=== PATIENT | male | born 1990 | race Caucasian/White ===

== ENCOUNTER 2017-06-29 13:27 | Emergency (ER) | payer SELFPAY ==
[~2017-06-29] VITALS: Ht 177.8 cm; Wt 115.7 kg
[~2017-06-29 13:27] MED LIST: ALBUTEROL0.09 MG/A2 INH; FLEXERIL10 MG PO; LOMOTIL 0.025 M1 TA1 PO; NKHM; Nizoral 2%15 GM PO; PREDNICOT20 MG PO; TESSALON PERLE100 M1 PO; TRAMADOL HCL50 MG PO; TYLENOL W/CODEI1 TA2 PO; ULTRAM50 MG PO; ZITHROMAX Z PA250 MG PO; ZOVIRAX800 MG PO
[2017-06-29 14:07] LABS: BASO % 0.4 % (0.0-1.0); EOS % 0.1 % (1.0-4.0); HEMOGLOBIN 13.1 g/dl (14.0-18.0); LYMPH # 1.3 10*3/uL (1.3-4.4); MEAN CELL VOLUME 88.4 fl (80.0-94.0); MEAN CORPUSCULAR HGB 30.5 pg (27.0-31.0); MEAN CORPUSCULAR HGB CONC 34.5 g/dl (33.0-37.0); MEAN PLATELET VOLUME 9.2 fl (9.6-12.3); MONO # 0.7 10*3/uL (0.1-1.0); MONO % 6.7 % (3.0-9.0); NEUT # 7.9 10*3/uL (2.3-7.9); NEUT % 79.1 % (47.0-73.0); PLATELET COUNT AUTOMATED 150 10*3/uL (130-400); RED CELL DISTRI WIDTH 12.1 % (0-14.5)
[2017-06-29 14:25] LABS: ALBUMIN 3.5 gm/dl (3.1-4.5); ALKALINE PHOSPHATASE 92 U/L (45-117); BUN 9 mg/dl (7-24); CHLORIDE 106 mmol/L (98-107); CREATININE 0.92 mg/dL (0.70-1.30); POTASSIUM 3.9 mmol/L (3.5-5.1); SGOT/AST 37 IU/L (3-35); SGPT/ALT 53 U/L (12-78); SODIUM 139 mmol/L (136-145)
[2017-06-29] MEDS ORDERED: CLARITIN10 MG PO (15:02)
[2017-06-29] MEDS ORDERED: FLONASE ALLERG9.9 ML NAS (15:02)
[2017-06-29] MEDS ORDERED: PREDNISONE10 MG PO (15:02)
[2017-06-29] MEDS ORDERED: ROBITUSSIN DM 105 ML PO (15:02)
== END 2017-06-29 15:37 | disposition home or self-care (01) ==
LOC: ED 13:27
PROVIDERS: Nurse Practitioner Family
DX: B34.9 Viral infection, unspecified (principal); R03.0 Elevated blood-pressure reading, without diagnosis of hypertension; J02.9 Acute pharyngitis, unspecified

== ENCOUNTER 2017-07-03 09:25 | Emergency (ER) | payer SELFPAY ==
[~2017-07-03] VITALS: Ht 177.8 cm; Wt 117.9 kg
[~2017-07-03 09:25] MED LIST changes: +CLARITIN10 MG PO; +FLONASE ALLERG9.9 ML NAS; +PREDNISONE10 MG PO; +ROBITUSSIN DM 105 ML PO
[2017-07-03] MEDS ORDERED: VIBRAMYCIN100 MG PO (10:05)
== END 2017-07-03 10:55 | disposition home or self-care (01) ==
LOC: ED 09:25
DX: R50.9 Fever, unspecified (principal); R21 Rash and other nonspecific skin eruption; R53.1 Weakness; M54.2 Cervicalgia

== ENCOUNTER 2018-06-22 13:14 | Emergency (ER) | payer SELFPAY ==
[~2018-06-22] VITALS: Ht 177.8 cm; Wt 120.2 kg
[~2018-06-22 13:14] MED LIST changes: +VIBRAMYCIN100 MG PO
[2018-06-22] MEDS ORDERED: KENALOG 0.1%80 GM T (13:26)
== END 2018-06-22 14:05 ==
LOC: ED 13:14
DX: R21 Rash and other nonspecific skin eruption (principal); E66.9 Obesity, unspecified; Z68.39 Body mass index [BMI] 39.0-39.9, adult

== ENCOUNTER 2018-07-02 00:45 | Emergency (ER) | payer SELFPAY ==
[~2018-07-02] VITALS: Ht 180.3 cm; Wt 120.2 kg
[~2018-07-02 00:45] MED LIST changes: +KENALOG 0.1%80 GM T
[2018-07-02] MEDS ORDERED: PREDNISONE20 M1 PO (00:55)
[2018-07-02] MEDS ORDERED: ELIMITE 5%60 GM T (00:55)
[2018-07-02] MEDS ORDERED: BENADRYL25 M2 PO (00:55)
== END 2018-07-02 01:21 | disposition home or self-care (01) ==
LOC: ED 00:45
DX: R21 Rash and other nonspecific skin eruption (principal)

== ENCOUNTER → 2018-07-20 | Outpatient (CLI) | payer SELFPAY ==
[~2018-07-20] MED LIST changes: +BENADRYL25 M2 PO; +ELIMITE 5%60 GM T; +PREDNISONE20 M1 PO
== END | disposition home or self-care (01) ==
LOC: RESCLI 10:53
DX: L02.91 Cutaneous abscess, unspecified (principal); F17.200 Nicotine dependence, unspecified, uncomplicated; Z88.8 Allergy status to other drugs, medicaments and biological substances

== ENCOUNTER → 2018-09-21 | Outpatient (CLI) | payer SELFPAY | END | disposition home or self-care (01) | LOC: RESCLI 11:21 | DX: L30.9 Dermatitis, unspecified (principal); F17.210 Nicotine dependence, cigarettes, uncomplicated; Z86.19 Personal history of other infectious and parasitic diseases ==

== ENCOUNTER → 2018-10-01 | Outpatient (CLI) | payer SELFPAY | END | disposition home or self-care (01) | LOC: RESCLI 01:25 | DX: R21 Rash and other nonspecific skin eruption (principal); F17.210 Nicotine dependence, cigarettes, uncomplicated; Z86.19 Personal history of other infectious and parasitic diseases ==

== ENCOUNTER → 2018-10-13 | Outpatient (CLI) | payer SELFPAY | END | disposition home or self-care (01) | DX: R21 Rash and other nonspecific skin eruption (principal); F17.210 Nicotine dependence, cigarettes, uncomplicated ==

== ENCOUNTER → 2018-11-05 | Outpatient (CLI) | payer SELFPAY | END | disposition home or self-care (01) | LOC: RESCLI 02:52 | DX: L73.9 Follicular disorder, unspecified (principal); R21 Rash and other nonspecific skin eruption; F17.210 Nicotine dependence, cigarettes, uncomplicated; Z79.899 Other long term (current) drug therapy ==

== ENCOUNTER 2020-03-19 18:37 | Emergency (ER) | payer SELFPAY ==
[~2020-03-19] VITALS: Ht 180.3 cm; Wt 117.9 kg
== END 2020-03-19 20:54 | disposition home or self-care (01) ==
LOC: ED 18:37
DX: R07.0 Pain in throat (principal); Z79.899 Other long term (current) drug therapy